=== PATIENT | male | born 1980 | race Caucasian/White ===

== ENCOUNTER 2021-02-03 21:37 | Emergency (ER) | payer OTHER, SELFPAY ==
[2021-02-03] VITALS (20 sets, daily range): BP systolic 97–142; BP diastolic 78–116; PULSE 65–91; RESP 11–24; TEMP 36.9; O2SAT 97–100
--- NOTE | ~2021-02-03 | XR_ITS ---
EXAMINATION: XR chest 1V portable DATE: 02/04/2021 01:38 INDICATION: Right pneumothorax. TECHNIQUE: A single frontal view of the chest was obtained. COMPARISON: Chest single view 02/03/2021 FINDINGS: There is a small right pneumothorax. There are mild airspace opacities in all right lung zo tk, likely atelectasis. No pleural effusion. The heart size is normal. There is a chest tube at righ t lung base. There is gas in right lateral chest wall. IMPRESSION: 1. Small right pneumothorax with improvement status post chest tube placement. Reviewed, dictated and finalized at location A. ER
--- NOTE | ~2021-02-03 | CT_ITS ---
EXAMINATION: CTA chest PE protocol DATE: 02/03/2021 23:47 INDICATION: Left-sided chest pain. Shortness of breath. TECHNIQUE: Computed tomography (CT) pulmonary angiogram of the chest was performed with 100 mL Omnipa que-350 intravenous contrast. Additional 3D reconstructions utilizing coronal maximum intensity proje ction (MIP) were performed. The dose-length product was 430.08 mGy-cm. COMPARISON: None FINDINGS: Excellent contrast opacification of the pulmonary arteries. There is mild streak artifact from dense contrast in the superior vena cava and right atrium. Minimal scattered respiratory motion artifact wh ich does not significantly limit evaluation. No pulmonary embolism. Large right pneumothorax located primarily in the mid to lower right hemithorax. There is atelectasis throughout much of the right wen g which remains tethered peripherally at multiple locations. There is no significant leftward shift o f the normal sized heart or superior mediastinum although the pneumothorax does distend the azygos es ophageal recess across the midline with mild leftward shift of the esophagus in the posterior mediast inum. There is however depression of the right hemidiaphragm which could be seen with tension pneumot horax. Left lung remains clear. No pneumonia, pulmonary edema or pleural effusion. No pericardial eff usion. Thoracic aorta is normal in caliber with no dissection. There several surgical clips along the right side of the superior mediastinum. No pathologically enlarged thoracic lymphadenopathy. Visual ized upper abdomen is unremarkable. Bones are unremarkable. IMPRESSION: 1. Large right pneumothorax with mild relative depression of the right hemidiaphragm and mild leftwar d shift of the esophagus at the posterior mediastinum suggesting some degree of tension pneumothorax. Recommend chest tube placement. There are portions of the lung both anteriorly and posteriorly tethe red to the periphery of the chest at and above level of the fifth rib as well as posteriorly along th e level of the 9th and 10th ribs. Would review CT images prior to chest tube placement to avoid lung injury. Dr. Melara discussed these findings with Dr. Vasquez at 12:05 AM. 2. No pulmonary embolism. Reviewed, dictated and finalized at location H. R UP FOLDING IMPRESSION: 1. Large right pneumothorax with mild relative depression of the right hemidiap hragm and mild leftward shift of the esophagus at the posterior mediastinum sug gesting some degree of tension pneumothorax. Recommend chest tube placement. Th ere are portions of the lung both anteriorly and posteriorly tethered to the pe riphery of the chest at and above level of the fifth rib as well as posteriorly along the level of the 9th and 10th ribs. Would review CT images prior to ches t tube placement to avoid lung injury. Dr. Melara discussed these findings wi Dr. Vasquez at 12:05 AM. 2. No pulmonary embolism.
--- NOTE | ~2021-02-03 | XR_ITS ---
EXAMINATION: XR chest 1V portable DATE: 02/03/2021 21:43 INDICATION: Possible pneumothorax TECHNIQUE: frontal view of the chest was obtained. COMPARISON: None FINDINGS: There is increased lucency and hyperexpansion of the right mid to lower lung with right upper lobe vo lume loss with elevation of the right minor fissure. Subtle pulmonary markings extend through the reg ion of increased lucency with no evident pleural margins to suggest pneumothorax. Subtle increased op acity with progressive crowding in the right upper lung likely reflecting atelectasis. Left lung is c lear. No pleural effusion or pneumothorax. Heart size is normal. Surgical clips projecting over the r ight paratracheal region. IMPRESSION: 1. Expansion with increased lucency of the right mid to lower lung without evident pneumothorax. This could be related to emphysema, air trapping or compensatory hyperexpansion related to a partial pneu monectomy. Correlate with clinical history. Reviewed, dictated and finalized at location . [facility] IMPRESSION: 1. Expansion with increased lucency of the right mid to lower lung without evid ent pneumothorax. This could be related to emphysema, air trapping or compensat ory hyperexpansion related to a partial pneumonectomy. Correlate with clinical history.
--- NOTE | 2021-02-03 21:41 | ECG_ITS ---
Measurements Intervals [place] Rate: 86 P: 77 MA: 167 QRS: 15 QRSD: 94 T: 55 QT: 352 QTc: 423 Interpretive Statements SINUS RHYTHM POSSIBLE LEFT ATRIAL ENLARGEMENT INCOMPLETE RIGHT BUNDLE BRANCH BLOCK BASELINE ARTIFACT- I, II, III, AVR, AVL, AVF, V1-V6 BORDERLINE ECG Electronically Signed On 02-04-2021 5:40:47 HEAD [employer]OOKKEEPER by Floyd Dickson D.O.
[2021-02-03] MEDS: KETOROLAC 30 MG/ML VIAL (*BKC) IV PUSH (21:49)
[2021-02-03 22:12] LABS: Basophils Absolute Auto 0.1 K/mm3 (0.0-0.1); Basophils Percent Auto 0.7 % (0.2-1.2); Eosinophils Absolute Auto 0.2 K/mm3 (0-0.3); Eosinophils Percent Auto 2.3 % (0-4.4); Hematocrit 47.2 % (42.0-52.0); Hemoglobin 16.2 g/dL (14.0-18.0); Immature Granulocyte Absolute 0.01 K/mm3 (0.00-0.031); Immature Granulocyte Percent A 0.1 % (0-0.5); Lymphocytes Absolute Auto 3.36 K/mm3 (0.9-3.2); Lymphocytes Percent Auto 40.6 % (18.3-44.2); Mean Corpuscular HGB Conc 34.3 g/dl (32-36); Mean Corpuscular Hemoglobin 30.6 pg (26-34); Mean Corpuscular Volume 89.1 fl (80-100); Mean Platelet Volume 8.9 fl (7.4-10.4); Monocytes Absolute Auto 0.8 K/mm3 (0.1-0.6); Neutrophils Absolute Auto 3.8 K/mm3 (1.3-6.7); Neutrophils Percent Auto 46.3 % (45.5-73.1); Platelet Count Result 241 k/mm3 (150-375); Red Cell Distribution Width 12.5 % (11.5-14.5); White Blood Count 8.3 K/mm3 (4.5-10.0)
[2021-02-03 22:24] LABS: Alanine Aminotransferase 29 U/L (4-50); Albumin Level 4.9 g/dL (3.5-5.1); Alkaline Phosphatase 72 U/L (38-126); Anion Gap 12 mmol/L (8-16); Aspartate Amino Transferase 30 U/L (17-59); Bilirubin,Total 0.5 mg/dL (0.2-1.3); Blood Urea Nitrogen 16 mg/dL (9-20); Calcium 9.6 mg/dL (8.4-10.2); Carbon Dioxide 21 mmol/L (22-30); Chloride 102 mmol/L (98-107); Estimated CRCL calculation 127 ml/min; Estimated Glomerular Filt Rate > 60; Glucose 103 mg/dL (65-110); Potassium 3.8 mmol/L (3.4-5.0); Sodium 135 mmol/L (137-145)
--- NOTE | 2021-02-03 22:29 | ED.GENADULT ---
HPI - General Adult General Chief complaint: Chest Pain <Mally Vasquez MD - Last Filed: 02/04/21 16:33> Stated complaint: POSSIBLE TENSION PNEUMO <Mally Vasquez MD - Last Filed: 02/04/21 16:33> Time Seen by Provider: 02/03/21 21:41 <Mally Vasquez MD - Last Filed: 02/04/21 16:33> Source: patient and RN notes reviewed <Mally Vasquez MD - Last Filed: 02/04/21 16:33> History of Present Illness HPI narrative: Patient is a 40 y/o male complaining right sided chest pain starting about 2 hours ago. He states that he got up from a couch and experienced sharp stabbing pain. He rates his pain as 10/10 initially. Breathing makes his pain worse. He is concerned about pneumothorax because he had previous pneumothorax. <Mally Vasquez MD - Last Filed: 02/04/21 16:33> Related Data Allergies/adverse reactions: Allergies Allergy/AdvReac Type Severity Reaction Status Date / Time codeine Allergy Unknown Verified 02/04/21 07:39 strawberry Allergy Itching Verified 02/04/21 07:39 <Mally Vasquez MD - Last Filed: 02/04/21 16:33> Review of Systems Constitutional: Constitutional: Denies chills, Denies fever(s), Denies headache(s) and Denies weakness <Mally Vasquez MD - Last Filed: 02/04/21 16:33> Eyes: Eyes: Denies blurry vision <Mally Vasquez MD - Last Filed: 02/04/21 16:33> ENT: Denies headache(s) and Denies neck pain <Mally Vasquez MD - Last Filed: 02/04/21 16:33> Cardiovascular: Cardiovascular: Reports chest pain and Reports dyspnea <Mally Vasquez MD - Last Filed: 02/04/21 16:33> Respiratory: Respiratory: Denies cough and Reports dyspnea <Mally Vasquez MD - Last Filed: 02/04/21 16:33> Gastrointestinal: Gastrointestinal: Denies abdominal pain, Denies diarrhea, Denies nausea and Denies vomiting <Mally Vasquez MD - Last Filed: 02/04/21 16:33> Genitourinary: Genitourinary: Denies hematuria and Denies dysuria <Mally Vasquez MD - Last Filed: 02/04/21 16:33> Musculoskeletal: Musculoskeletal: Denies back pain and Denies neck pain <Mally Vasquez MD - Last Filed: 02/04/21 16:33> Neurologic: Denies headache(s) and Denies weakness <Mally Vasquez MD - Last Filed: 02/04/21 16:33> Exam Const: General: no acute distress and well developed <Mally Vasquez MD - Last Filed: 02/04/21 16:33> Orientation/consciousness: oriented to person, oriented to place, oriented to time and patient oriented x3 <Mally Vasquez MD - Last Filed: 02/04/21 16:33> HENMT: Head: normocephalic <Mally Vasquez MD - Last Filed: 02/04/21 16:33> Ears: external ears normal <Mally Vasquez MD - Last Filed: 02/04/21 16:33> General nose exam: Normal external nose present <Mally Vasquez MD - Last Filed: 02/04/21 16:33> Eyes: General: appearance normal, both eyes and all related structures <Mally Vasquez MD - Last Filed: 02/04/21 16:33> Conjunctivae: conjunctivae normal <Mally Vasquez MD - Last Filed: 02/04/21 16:33> Neck: Neck: normal visual inspection and full ROM <Mally Vasquez MD - Last Filed: 02/04/21 16:33> Chest: Chest palpation & inspection: normal inspection of the chest and no tenderness <Mally Vasquez MD - Last Filed: 02/04/21 16:33> Resp: Effort & Inspection: normal respiratory effort <Mally Vasquez MD - Last Filed: 02/04/21 16:33> Auscultation: diminished lung sounds on the right <Mally Vsaquez MD - Last Filed: 02/04/21 16:33> Cardio: Rate: regular rate <Mally Vasquez MD - Last Filed: 02/04/21 16:33> Rhythm: regular rhythm <Mally Vasquez MD - Last Filed: 02/04/21 16:33> GI: GI Palp: No abdominal tenderness and Yes Soft to palpation <Mally Vasquez MD - Last Filed: 02/04/21 16:33> Skin: General skin exam: normal color and turgor normal <Mally Vasquez MD - Last Filed: 02/04/21 16:33> Neuro: General: oriented to person, oriented to place, oriented to time and patient oriented x3 <Mally Vasquez MD - Last Filed: 02/04/21 16:33> Cognition (Neuro): normal cognition <Mally Vasquez
[2021-02-03 22:35] LABS: Troponin I < 0.012 ng/mL (0.000-0.034)
[2021-02-03 23:10] LABS: D Dimer 0.27 ug/mL (<0.48)
[2021-02-04] VITALS (41 sets, daily range): BP systolic 105–130; BP diastolic 71–99; PULSE 43–86; RESP 10–28; TEMP 36.6; O2SAT 97–100
[2021-02-04] MEDS: SODIUM CHLORIDE 0.9% IV 1,000 ML 999 ML IV CONT (00:42)
[2021-02-04] MEDS: LORazepam INJ (*CRX) 2 MG/ML VIAL 1 MG IV PUSH (00:49)
[2021-02-04] MEDS: fentaNYL CITRATE INJ (*CRX) 100 MCG/2 ML VIAL 50 MCG IV PUSH ×2 (00:50→02:04)
[2021-02-04] MEDS: ONDANSETRON INJ 4 MG/2 ML VIAL (01:09)
--- NOTE | 2021-02-04 01:11 | PC.NURSE ---
assisting dr pruitt with right side chest tube
[2021-02-04 02:06] LABS: Troponin I < 0.012 ng/mL (0.000-0.034)
--- NOTE | 2021-02-04 02:25 | PC.NURSE ---
Addendum entered by Bozena Castillo 02/04/21 03:17: Called [facility] and cancelled waitlist. Patient was accepted at [place] (but waiting for bed). Original Note: [facility] Transfer Center, called, said patient is on WAITLIST. When a bed a this patient's acuity becomes available, they will call for the doctor to doctor discussion.
--- NOTE | 2021-02-04 02:48 | PC.NURSE ---
ERP Dr. Lang on phone with [facility].
--- NOTE | 2021-02-04 02:49 | PC.NURSE ---
Dr. Canada @ [facility] is accepting, but will call back once a bed is available.
[2021-02-04 03:45] LABS: EDCOVIDSCREEN Negative (Negative)
--- NOTE | 2021-02-04 04:31 | PC.NURSE ---
[facility] transfer center contacted with neg covid result will call back when they have a bed
[2021-02-04] MEDS: HYDROmorphone HCL INJ (*CRX) 1 MG/ML SYR IV PUSH (05:29)
[2021-02-04 06:09] LABS: Troponin I < 0.012 ng/mL (0.000-0.034)
--- NOTE | 2021-02-04 07:57 | PC.NURSE ---
Patient report called to [facility] to [facility]. Patient to go to room 7488. ambulance to arrive at 0900.
--- NOTE | 2021-02-04 09:45 | PC.NURSE ---
Patient transferred to [facility] via EMS for cardiothoracic services not available at originating facility.
== END 2021-02-04 09:45 | disposition short-term general hospital (02) ==
PROVIDERS: Emergency Provider Emergency Medicine; PCP Internal Medicine
DX: J93.0 Spontaneous tension pneumothorax (principal); R07.9 Chest pain, unspecified; Z20.822 Contact with and (suspected) exposure to COVID-19
CPT/HCPCS: 32551; 36415; 71045; 71275; 80053; 84484; 85025; 85380; 87426; 93005; 96361; 96374; 96375; 99291; C9803; J1170; J1885; J2060; J2405; J3010; J7030; Q9967